=== PATIENT | female | born 1950 | race Caucasian/White ===

== ENCOUNTER 2021-03-20 20:21 | Observation (INO) | payer MEDICARE ==
[~2021-03-20] VITALS: Ht 167.6 cm; Wt 104.3 kg
[2021-03-20 21:32] LABS: Bilirubin, Urine Neg (Neg); Blood, Urine Neg (Neg); Glucose Qualitative, Urine Neg (Neg); Ketones, Urine Neg (Neg); Leukocyte Esterase, Urine Neg (Neg); Nitrite, Urine Neg (Neg); Protein, Urine Neg (Neg); Source, Urine Clean Catch; Specific Gravity, Urine 1.005 (1.003-1.022); Urobilinogen, Urine NORM (Normal)
[2021-03-20 21:32] LABS: BASOPHILS PERCENT AUTO 1 % (0-2); EOSINOPHILS ABSOLUTE AUTO 0.26 K/mm3 (0.00-0.68); EOSINOPHILS PERCENT AUTO 2 % (0-6); Hematocrit 41.6 % (33.0-51.0); Hemoglobin 13.8 g/dL (11.5-16.0); IMMATURE GRAN ABSOLUTE AUTO 0.02 K/mm3 (0.00-0.10); IMMATURE GRAN PERCENT AUTO 0 % (0-1); LYMPHOCYTES ABSOLUTE AUTO 1.54 K/mm3 (0.84-5.20); LYMPHOCYTES PERCENT AUTO 12 % (21-46); MONOCYTES ABSOLUTE AUTO 0.66 K/mm3 (0.16-1.47); MONOCYTES PERCENT AUTO 5 % (4-13); Mean Corpuscular HGB 32.7 pg (26.0-34.0); Mean Corpuscular HGB Conc 33.2 g/dL (31.5-36.5); Mean Corpuscular Volume 99 fL (80-100); Mean Platelet Volume 9.3 fL (9.1-12.4); NEUTROPHILS ABSOLUTE AUTO 10.75 K/mm3 (1.96-9.15); NEUTROPHILS PERCENT AUTO 80 % (41-73); Platelet Count 298 K/mm3 (150-400); RDW Coefficient Variation 13.1 % (11.7-14.2); RDW Standard Deviation 46.6 fL (35.1-46.3); Red Blood Cell Count 4.22 M/mm3 (3.80-5.20); White Blood Cell Count 13.33 K/mm3 (4.00-11.30)
[2021-03-20 21:41] LABS: Appearance, Urine Clear (Clear); Color, Urine Yellow (P-Yellow)
[2021-03-20 21:54] LABS: Alanine Aminotransfer (ALT/SGP 23 U/L (12-78); Albumin/Globulin Ratio 1.1 (0.8-1.8); Alk Phos 91 U/L (50-136); Anion Gap 6 mmol/L (6-16); Aspartate Aminotrans (AST/SGOT 20 U/L (12-37); Bilirubin, Total 0.5 mg/dL (0.1-1.0); Blood Urea Nitrogen 18 mg/dL (8-24); CO2, Blood 24 mmol/L (21-32); Calcium, Blood 9.2 mg/dL (8.5-10.1); Chloride, Blood 109 mmol/L (98-108); Creatinine, Blood 0.78 mg/dL (0.40-1.00); Globulin, Blood 3.8 g/dL (2.2-4.0); Glomerular Filtration Rate >60 (60-); Glucose, Blood 105 mg/dL (70-99); Sodium, Blood 139 mmol/L (136-145); Total Protein, Blood 7.8 g/dL (6.4-8.2)
[2021-03-20] MEDS ORDERED: Prinivil10 MG PO (22:38)
[2021-03-20] MEDS ORDERED: EUTHYROX125 MCG PO ×2 (22:39→23:34)
[2021-03-21 01:24] LABS: SARS-Cov-2 (COVID-19) PCR, MMC NEGATIVE (NEGATIVE)
--- NOTE | 2021-03-21 04:01 | NUR ---
SHIFT SUMMARY NEW ER ADMIT. ALERT, ORIENTED, AND INDEP IN ROOM. PT DENIES NEED FOR PAIN MEDICATIONS FOR ABD PAIN. RECEIVED TYLENOL FOR MILD HEADACHE IN ER. DENIES N/V. IVF INFUSING PER ORDERS. NPO. USES CALL LIGHT APPROPRIATELY.
[2021-03-21 04:57] LABS: BASOPHILS ABSOLUTE AUTO 0.07 K/mm3 (0.00-0.23); BASOPHILS PERCENT AUTO 1 % (0-2); EOSINOPHILS PERCENT AUTO 2 % (0-6); Hematocrit 36.5 % (33.0-51.0); Hemoglobin 12.3 g/dL (11.5-16.0); IMMATURE GRAN ABSOLUTE AUTO 0.02 K/mm3 (0.00-0.10); IMMATURE GRAN PERCENT AUTO 0 % (0-1); LYMPHOCYTES ABSOLUTE AUTO 2.13 K/mm3 (0.84-5.20); LYMPHOCYTES PERCENT AUTO 21 % (21-46); MONOCYTES ABSOLUTE AUTO 0.66 K/mm3 (0.16-1.47); MONOCYTES PERCENT AUTO 6 % (4-13); Mean Corpuscular HGB Conc 33.7 g/dL (31.5-36.5); Mean Corpuscular Volume 98 fL (80-100); Mean Platelet Volume 9.3 fL (9.1-12.4); NEUTROPHILS ABSOLUTE AUTO 7.24 K/mm3 (1.96-9.15); NEUTROPHILS PERCENT AUTO 70 % (41-73); Platelet Count 259 K/mm3 (150-400); RDW Standard Deviation 46.3 fL (35.1-46.3); Red Blood Cell Count 3.73 M/mm3 (3.80-5.20); White Blood Cell Count 10.32 K/mm3 (4.00-11.30)
[2021-03-21 05:30] LABS: Anion Gap 5 mmol/L (6-16); Blood Urea Nitrogen 15 mg/dL (8-24); Bun/Creatinine Ratio 18.1 (12.0-20.0); CO2, Blood 25 mmol/L (21-32); Calcium, Blood 8.7 mg/dL (8.5-10.1); Chloride, Blood 111 mmol/L (98-108); Creatinine, Blood 0.83 mg/dL (0.40-1.00); Glomerular Filtration Rate >60 (60-); Glucose, Blood 95 mg/dL (70-99); Potassium, Blood 3.6 mmol/L (3.5-5.5); Sodium, Blood 141 mmol/L (136-145)
--- NOTE | 2021-03-21 14:30 | NUR ---
SURGERY: PT TO THE OR AT THIS TIME. SURGICAL PKT COMPLETED. PT HAS VOIDED. WILL CONT TO MONITOR WHEN RETURNS TO ROOM POST OP.
--- NOTE | 2021-03-21 15:50 | NUR ---
03/21/21 1550 PAOLANORA CARBALLO PT RECEIVED SCHEDULED DOSE OF ANTIBIOTICS PRIOR TO PROCEDURE PER DR ORDERS.
--- NOTE | 2021-03-21 17:25 | NUR ---
POST OP: PT RETURNED TO ROOM POST OP. VSS. PT HAS STERI STRIPS X3 WITH SMALL AMT OOZING BLOOD. PT DENIES PAIN AND NAUSEA. CRACKERS AND JELLO GIVEN. IV INFUSING. WILL CONT TO MONITOR AND TREAT.
--- NOTE | 2021-03-21 18:31 | NUR ---
PT IS POST OP DAY 0 THIS SHIFT FOR LAP APPY. PT HAS STERI STRIPS X3 WITH MIN DRAINAGE. PT DENIES PAIN AND NAUSEA T/O SHIFT. PT LINNETTE REG DIET. CONT IV ABX. PT AMBULATORY IN ROOM. INDEP TO BATHROOM. VOIDING WELL. USES CALL LIGHT APPROPRIATELY. PLAN DC HOME TOMORROW.
--- NOTE | 2021-03-22 04:08 | NUR ---
SHIFT SUMMARY POD#1 LAP APPI AAOX4. PAIN CONTROLLED WITH X1 IBUPROFEN 600MG PO. NO NAUSEA/EMESIS. LAP ABD INCISIONS WITH STERI STRIPS X3 C/D/I. PT TOLERATING DIET WELL + GOOD URINE OUTPUT. IVF + ABX PER ORDERS. PT INDEPENDENT IN ROOM. AMBULATING WELL. PT AWAKE AT THIS TIME WITH INCREASED ANXIETY R/T DISCHARGE, BP NOTED, DECREASED ANXIETY WITH CONVERSATION, WILL CONTINUE TO ASSESS BP.
--- NOTE | 2021-03-22 08:59 | NUR ---
PT STATES "NONE" WHEN ASKED LEVEL OF PAIN DURING ASSESSMENT. TOLERATING REGULAR DIET, REPORTS FLATUS, DENIES N/V. AMBULATING INDEPENDENTLY IN ROOM AND HALLWAY.
[2021-03-22] MEDS ORDERED: AMOCLA875 PO (12:25)
--- NOTE | 2021-03-22 12:46 | NUR ---
DISCHARGE PT DISCHARGED HOME FROM UNIT AT APROX 1228. PT GIVEN WRITTEN AND VERBAL DISCHARGE INSTUCTIONS AND VERBALIZED UNDERSTANDING. RX FOR ABX CALLED TO [id number] LEFT ON VM. PT DECLINED WC TO CAR, AMBULATED INDEPENDENTLY.
== END 2021-03-22 12:47 | disposition home or self-care (01) ==
LOC: ER 20:21 → ERHOLD 20:22 → SURS 20:22
PROVIDERS: Physician Assistant; ADMIT Surgery
PROC: 0DTJ4ZZ Resection of Appendix, Percutaneous Endoscopic Approach (ICD-10-PCS; principal; 2021-03-21 13:45)
DX: K35.80 Unspecified acute appendicitis (principal); I10 Essential (primary) hypertension; Z87.891 Personal history of nicotine dependence; Z20.822 Contact with and (suspected) exposure to COVID-19
CPT/HCPCS: 36415; 74177; 80048; 80053; 81003; 85025; 93005; 93010; 96361; 96365; 96366; 96376; 99285-25; A9270; G0378; J1885; J2543; J2704; J2710; J3010; J7030; J7120; Q9967; U0004